=== PATIENT | male | born 1995 | race Caucasian/White ===

== ENCOUNTER 2017-01-26 19:21 | Emergency (ER) | payer OTHER ==
[2017-01-26 22:49] LABS: ALBUMIN 4.1 g/dL (3.5-5.0); BILIRUBIN - TOTAL 0.4 mg/dL (0.1-1.0); CREATININE 0.9 mg/dL (0.7-1.2); POTASSIUM 3.9 mmol/L (3.5-5.1); TOTAL PROTEIN 7.1 g/dL (6.4-8.3)
== END 2017-01-26 23:45 | disposition home or self-care (01) ==
LOC: FER 19:21
PROVIDERS: Nurse Practitioner
DX: M79.662 Pain in left lower leg (principal)
CPT/HCPCS: 36415; 80053; 93971